=== PATIENT | female | born 1955 | race American Indian/Alaskan Native ===

== ENCOUNTER 2020-05-13 18:56 | Emergency (ER) | payer SELFPAY ==
[2020-05-13] MEDS ORDERED: SODIUM CHLORIDE 0.9% 1000 ML 1,000 ML IV ONE (20:04)
[2020-05-13] MEDS ORDERED: MORPHINE 4 MG/1 ML INJ IV ONE (20:04)
--- NOTE | 2020-05-13 20:25 | Emergency Department Report ---
HPI - HPI HPI: This is a 64-year-old -[place] female presents to the emergency department via EMS from home with a complaint of left lower quadrant abdominal pain that has been going on for the past few weeks but worsened today. She denies any fever, dysuria, vaginal bleeding or discharge, constipation or charlene rrhea, nausea or vomiting. The patient was seen at [facility] of [facility] last week for similar symptoms and says that she had a work-up but was eventually discharged home. She has a past medical history of previous CVA with right-sided deficits, COPD on 2 L oxygen, hypertension. The patient also has history of a left-sided nephrectomy secondary to renal carcinoma. She has not taken anything for her recent symptoms prior to presentation today. No recent travel or sick contacts at home. <ESTEFANY COURTNEY - Last Filed: 05/14/20 00:05> <BENJI CARRENO - Last Filed: 05/14/20 05:11> - General Chief Complaint: Abdominal Pain Time Seen by Provider: 05/13/20 20:04 ED Past Medical Hx - Past Medical History Previous Medical History?: Yes Hx Hypertension: Yes Hx CVA: Yes Hx COPD: Yes Additional medical history: lymphedema of bilateral lower legs - Surgical History Past Surgical History?: Yes Additional Surgical History: left kidney removed - Social History Smoking Status: Never Smoker Substance Use Type: None <ESTEFANY COURTNEY - Last Filed: 05/14/20 00:05> <BENJI CARRENO - Last Filed: 05/14/20 05:11> - Medications Home Medications: Home Medications Medication Instructions Recorded Confirmed Last Taken Type Albuterol INH(or & Nicu Only) 2 puff IH QID PRN 05/13/20 05/13/20 Unknown History [ProAir HFA Inhaler] Metoprolol [Lopressor] 12.5 mg PO BID 05/13/20 05/13/20 Unknown History predniSONE [Deltasone] 40 mg PO QDAY 05/13/20 05/13/20 Unknown History Rivaroxaban [Xarelto] 20 mg PO QDAY 05/14/20 05/14/20 Unknown History ED Review of Systems ROS: Stated complaint: COVID Other details as noted in HPI Comment: All other systems reviewed and negative Constitutional: denies: fever Eyes: denies: eye pain, vision change ENT: denies: ear pain, throat pain Respiratory: denies: cough, shortness of breath Cardiovascular: denies: chest pain, palpitations Gastrointestinal: abdominal pain. denies: vomiting Genitourinary: denies: dysuria, discharge Musculoskeletal: denies: back pain, arthralgia Skin: denies: rash, lesions Neurological: denies: headache, weakness <ESTEFANY COURTNEY Luis Felipe - Last Filed: 05/14/20 00:05> ROS: Stated complaint: COVID Other details as noted in HPI <EDILMAANGIEBENJI - Last Filed: 05/14/20 05:11> Physical Exam - Physical Exam Vital Signs: Vital Signs 05/13/20 05/13/20 19:41 19:48 Temperature 99.6 F 99.6 F Pulse Rate 94 H 96 H Respiratory 20 20 Rate Blood Pressure 120/75 Blood Pressure 125/76 [Left] O2 Sat by Pulse 98 98 Oximetry Physical Exam: GENERAL: The patient is well-developed well-nourished. HENT: Normocephalic. Atraumatic. Patient has moist mucous membranes. EYES: Extraocular motions are intact. NECK: Supple. Trachea is midline. CHEST/LUNGS: Clear to auscultation. There is no respiratory distress noted. HEART/CARDIOVASCULAR: Regular. There is no tachycardia. ABDOMEN: Abdomen is soft. Unable to reproduce left lower quadrant abdominal tenderness to palpation. No guarding. Patient has normal bowel sounds. There is no abdominal distention. SKIN: Skin is warm and dry. NEURO: The patient is awake, alert, and oriented. The patient is cooperative. Normal speech. MUSCULOSKELETAL: There is no tenderness or deformity. <ESTEFANY COURTNEY Luis Felipe - Last Filed: 05/14/20 00:05> - Physical Exam Vital Signs: Vital Signs 05/13/20 05/13/20 05/13/20 19:19 19:30 19:41 Temperature 99.6 F Pulse Rate 94 H Respiratory 20 Rate Blood Pressure 120/75 Blood Pressure 125/76 [Left] O2 Sat by Pulse 99 99 98 Oximetry 05/13/20 05/13/20 05/13/20 19:46 19:48 20:00 Temperature 99.6 F Pulse Rate 101 H 96 H 101 H Respiratory 21 20 26 H Rate Blood Pressure 120/75 120/75 125/76 Blood Pressure [Left] O2 Sat by Pulse 98 98 99 Oximetry 0605/13/20 05/13/20 20:16 20:30 20:45 Temperature Pulse Rate 99 H 100 H 100 H Respiratory 21 20 20 Rate Blood Pressure 130/79 143/92 143/75 Blood Pressure [Left] O2 Sat by Pulse 98 98 99 Oximetry 05/13/20 05/13/20 05/13/20 21:00 21:15 21:30 Temperature Pulse Rate 103 H 99 H 106 H Respiratory 24 28 H 23 Rate Blood Pressure 149/83 142/79 142/79 Blood Pressure [Left] O2 Sat by Pulse 98 99 98 Oximetry 05/13/20 05/13/20 05/13/20 21:35 21:46 22:00 Temperature 100.2 F H Pulse Rate 101 H 97 H 97 H Respiratory 20 24 24 Rate Blood Pressure 134/80 127/79 Blood Pressure 134/76 [Left] O2 Sat by Pulse 99 99 99 Oximetry 05/13/20 05/13/20 05/13/20 22:05 22:15 22:30 Temperature Pulse Rate 99 H 103 H Respiratory 20 24 16 Rate Blood Pressure 121/77 123/69 Blood Pressure [Left] O2 Sat by Pulse 99 99 Oximetry 05/13/20 05/13/20 05/13/20 22:46 23:00 23:15 Temperature Pulse Rate 103 H 101 H 104 H Respiratory 19 26 H 21 Rate Blood Pressure 139/84 142/76 142/87 Blood Pressure [Left] O2 Sat by Pulse 95 98 97 Oximetry 05/13/20 05/13/20 05/14/20 23:30 23:45 00:00 Temperature Pulse Rate 101 H 102 H 99 H Respiratory 20 41 H 19 Rate Blood Pressure 135/82 138/83 146/81 Blood Pressure [Left] O2 Sat by Pulse 94 92 95 Oximetry 05/14/20 05/14/20 05/14/20 00:16 00:30 00:46 Temperature Pulse Rate 99 H 104 H 100 H Respiratory 20 23 19 Rate Blood Pressure 139/77 144/87 122/80 Blood Pressure [Left] O2 Sat by Pulse 91 93 95 Oximetry <BENJI CARRENO - Last Filed: 05/14/20 05:11> ED Course Vital Signs 05/13/20 05/13/20 19:41 19:48 Temperature 99.6 F 99.6 F Pulse Rate 94 H 96 H Respiratory 20 20 Rate Blood Pressure 120/75 Blood Pressure 125/76 [Left] O2 Sat by Pulse 98 98 Oximetry <ESTEFANY COURTNEY S - Last Filed: 05/14/20 00:05> Vital Signs 05/13/20 05/13/20 05/13/20 19:19 19:30 19:41 Temperature 99.6 F Pulse Rate 94 H Respiratory 20 Rate Blood Pressure 120/75 Blood Pressure 125/76 [Left] O2 Sat by Pulse 99 99 98 Oximetry 05/13/20 05/13/20 05/13/20 19:46 19:48 20:00 Temperature 99.6 F Pulse Rate 101 H 96 H 101 H Respiratory 21 20 26 H Rate Blood Pressure 120/75 120/75 125/76 Blood Pressure [Left] O2 Sat by Pulse 98 98 99 Oximetry 05/13/20 05/13/20 05/13/20 20:16 20:30 20:45 Temperature Pulse Rate 99 H 100 H 100 H Respiratory 21 20 20 Rate Blood Pressure 130/79 143/92 143/75 Blood Pressure [Left] O2 Sat by Pulse 98 98 99 Oximetry 05/13/20 05/13/20 05/13/20 21:00 21:15 21:30 Temperature Pulse Rate 103 H 99 H 106 H Respiratory 24 28 H 23 Rate Blood Pressure 149/83 142/79 142/79 Blood Pressure [Left] O2 Sat by Pulse 98 99 98 Oximetry 05/13/20 05/13/20 05/13/20 21:35 21:46 22:00 Temperature 100.2 F H Pulse Rate 101 H 97 H 97 H Respiratory 20 24 24 Rate Blood Pressure 134/80 127/79 Blood Pressure 134/76 [Left] O2 Sat by Pulse 99 99 99 Oximetry 05/13/20 05/13/20 05/13/20 22:05 22:15 22:30 Temperature Pulse Rate 99 H 103 H Respiratory 20 24 16 Rate Blood Pressure 121/77 123/69 Blood Pressure [Left] O2 Sat by Pulse 99 99 Oximetry 05/13/20 05/13/20 05/13/20 22:46 23:00 23:15 Temperature Pulse Rate 103 H 101 H 104 H Respiratory 19 26 H 21 Rate Blood Pressure 139/84 142/76 142/87 Blood Pressure [Left] O2 Sat by Pulse 95 98 97 Oximetry 05/13/20 05/13/20 05/14/20 23:30 23:45 00:00 Temperature Pulse Rate 101 H 102 H 99 H Respiratory 20 41 H 19 Rate Blood Pressure 135/82 138/83 146/81 Blood Pressure [Left] O2 Sat by Pulse 94 92 95 Oximetry 05/14/20 05/14/20 05/14/20 00:16 00:30 00:46 Temperature Pulse Rate 99 H 104 H 100 H Respiratory 20 23 19 Rate Blood Pressure 139/77 144/87 122/80 Blood Pressure [Left] O2 Sat by Pulse 91 93 95 Oximetry - Reevaluation(s) Reevaluation #1: 05/14/20 01:49 CT scan reviewed and appreciated. Nursing team is instructed to prepare patient for gynecologic examination and straight catheterized patient for urine Reevaluation #2: 05/14/20 05:10 Urinalysis not consistent with urinary tract infection. CT scan of the abdomen pelvis is reviewed and appreciated. I performed a gynecologic examination, with Ms. Bing Ortiz RN assisting care for the patient, her external gynecologic exam was unremarkable, there were no foreign bodies, there was no tenderness, and no obvious abnormality that we could detect. <BENJI CARRENO - Last Filed: 05/14/20 05:11> ED Medical Decision Making - Lab Data Result diagrams: 05/13/20 20:54 05/13/20 20:54 - Medical Decision Making This patient presents with the complaint of left lower quadrant abdominal pain that appears to have been going on for the past few weeks but worsened over the past 1 to 2 days. On examination I am unable to reproduce her left lower quadrant abdominal pain to palpation. The abdomen is soft, nondistended and nontoxic in appearance. The patient's labs have thus far been unremarkable including CBC and metabolic panel. We are waiting for a urine sample for urinalysis. Abdominal x-ray shows no obvious obstruction but x-ray was read by radiology as showing some mild small bowel distention. The patient is going to have a CT scan of the abdomen and pelvis with IV contrast. The results of which will be followed by my colleague, Dr Carreno. If negative, the patient will be discharged home. <ESTEFANY COURTNEY - Last Filed: 05/14/20 00:05> - Lab Data Result diagrams: 05/13/20 20:54 05/13/20 20:54 Vital Signs 05/13/20 05/13/20 05/13/20 19:19 19:30 19:41 Temperature 99.6 F Pulse Rate 94 H Respiratory 20 Rate Blood Pressure 120/75 Blood Pressure 125/76 [Left] O2 Sat by Pulse 99 99 98 Oximetry 05/13/20 05/13/20 05/13/20 19:46 19:48 20:00 Temperature 99.6 F Pulse Rate 101 H 96 H 101 H Respiratory 21 20 26 H Rate Blood Pressure 120/75 120/75 125/76 Blood Pressure [Left] O2 Sat by Pulse 98 98 99 Oximetry 05/13/20 05/13/20 05/13/20 20:16 20:30 20:45 Temperature Pulse Rate 99 H 100 H 100 H Respiratory 21 20 20 Rate Blood Pressure 130/79 143/92 143/75 Blood Pressure [Left] O2 Sat by Pulse 98 98 99 Oximetry 05/13/20 05/13/20 05/13/20 21:00 21:15 21:30 Temperature Pulse Rate 103 H 99 H 106 H Respiratory 24 28 H 23 Rate Blood Pressure 149/83 142/79 142/79 Blood Pressure [Left] O2 Sat by Pulse 98 99 98 Oximetry 05/13/20 05/13/20 05/13/20 21:35 21:46 22:00 Temperature 100.2 F H Pulse Rate 101 H 97 H 97 H Respiratory 20 24 24 Rate Blood Pressure 134/80 127/79 Blood Pressure 134/76 [Left] O2 Sat by Pulse 99 99 99 Oximetry 05/13/20 05/13/20 05/13/20 22:05 22:15 22:30 Temperature Pulse Rate 99 H 103 H Respiratory 20 24 16 Rate Blood Pressure 121/77 123/69 Blood Pressure [Left] O2 Sat by Pulse 99 99 Oximetry 05/13/20 05/13/20 05/13/20 22:46 23:00 23:15 Temperature Pulse Rate 103 H 101 H 104 H Respiratory 19 26 H 21 Rate Blood Pressure 139/84 142/76 142/87 Blood Pressure [Left] O2 Sat by Pulse 95 98 97 Oximetry 05/13/20 05/13/20 05/14/20 23:30 23:45 00:00 Temperature Pulse Rate 101 H 102 H 99 H Respiratory 20 41 H 19 Rate Blood Pressure 135/82 138/83 146/81 Blood Pressure [Left] O2 Sat by Pulse 94 92 95 Oximetry 06/05/14/20 05/14/20 00:16 00:30 00:46 Temperature Pulse Rate 99 H 104 H 100 H Respiratory 20 23 19 Rate Blood Pressure 139/77 144/87 122/80 Blood Pressure [Left] O2 Sat by Pulse 91 93 95 Oximetry Lab Results 05/13/20 05/13/20 Range/Units 20:54 20:54 WBC 4.1 L (4.5-11.0) K/mm3 RBC 4.95 (3.65-5.03) M/mm3 Hgb 14.4 H (10.1-14.3) gm/dl Hct 44.7 H (30.3-42.9) % MCV 90 (79-97) fl MCH 29 (28-32) pg MCHC 32 (30-34) % RDW 14.5 (13.2-15.2) % Plt Count 203 (140-440) K/mm3 Lymph % (Auto) 31.2 (13.4-35.0) % [place] % (Auto) 10.0 H (0.0-7.3) % Eos % (Auto) 0.0 (0.0-4.3) % Baso % (Auto) 0.3 (0.0-1.8) % Lymph # 1.3 (1.2-5.4) K/mm3 [place] # 0.4 (0.0-0.8) K/mm3 Eos # 0.0 (0.0-0.4) K/mm3 Baso # 0.0 (0.0-0.1) K/mm3 Seg Neutrophils % 58.5 (40.0-70.0) % Seg Neutrophils # 2.4 (1.8-7.7) K/mm3 Sodium 138 (137-145) mmol/L Potassium 3.6 (3.6-5.0) mmol/L Chloride 98.6 (98-107) mmol/L Carbon Dioxide 26 (22-30) mmol/L Anion Gap 17 mmol/L BUN 23 H (7-17) mg/dL Creatinine 1.0 (0.7-1.2) mg/dL Estimated GFR > 60 ml/min BUN/Creatinine Ratio 23 % Glucose 77 (65-100) mg/dL Calcium 8.6 (8.4-10.2) mg/dL Total Bilirubin 0.30 (0.1-1.2) mg/dL Direct Bilirubin 0.2 (0-0.2) mg/dL Indirect Bilirubin 0.1 mg/dL AST 22 (5-40) units/L ALT 12 (7-56) units/L Alkaline Phosphatase 86 (35-129) units/L Total Protein 6.9 (6.3-8.2) g/dL Albumin 3.9 (3.9-5) g/dL Albumin/Globulin Ratio 1.3 % Lipase 38 (13-60) units/L - EKG Data -: EKG Interpreted by Me - EKG Data 05/14/20 01:49 Sinus rhythm, 97 bpm, normal axis, QTC 442 ms, low voltage, poor R wave progression, abnormal EKG, - Radiology Data Radiology results: report reviewed, image reviewed Print Report Referring Physician: ESTEFANY COURTNEY Patient Name: ROSALBA VANN Date of : 1955 Sex: Female Report Date: 2020-05-14 Report Status: [place] [address] Cat Scan Report Signed Patient: ROSALBA VANN MR#: [id number] : 1955 Acct:[id number] Age/Sex: 64 / F ADM Date: 05/13/20 Loc: ED Attending Dr: Ordering Physician: ESTEFANY COURTNEY DO Date of Service: 05/13/20 Procedure(s): CT abdomen pelvis wo con Accession Number(s): [id number] cc: ESTEFANY COURTNEY DO CT ABDOMEN AND PELVIS WITHOUT IV CONTRAST INDICATION: Pt complains of L.L.Q. abdominal pain. Hx of a Nephrectomy. COMPARISON: Radiographs one day prior. TE CHNIQUE: All CT scans at this facility use dose modulation, automated exposure control, iterative reconstruction or weight based dosing, when appropriate, to reduce radiation dose to as low as reasonably achievable. FINDINGS: Lung Bases: No significant abnormality. Skeletal System: No acute abnormality. There is mild chronic compression deformity along the superior endplate of L5. ABDOMEN: Liver: No significant abnormality. Gallbladder: Minimal cholelithiasis. Bile Ducts: No significant abnormality. Pancreas: No significant abnormality. Spleen: No significant abnormality. Adrenals: No significant abnormality. Right Kidney: There is a punctate nonobstructing calyceal stone. No hydronephrosis. Left Kidney: Removed. Upper GI tract: No significant abnormality. Lymph Nodes: No significant adenopathy. Aorta: No significant abnormality. Additional Findings: There is a tiny fat-containing umbilical hernia. PELVIS: Colon: No acute abnormality. Urinary Bladder and Distal Ureters: No significant abnormality. Appendix: No significant abnormality. Lymph Nodes: No significant adenopathy. Additional Findings: The vaginal vault is markedly distended with gas. IMPRESSION: 1. No acute inflammatory process or bowel obstruction is seen. 2. The vaginal vault is markedly distended with gas. This is of uncertain etiology. 3. Incidental findings, as above. Signer Name: Good Centeno MD Signed: 05/14/2020 1:37 AM Workstation Name: [id number] Transcribed By: LAURA Dictated By: Good Centeno MD Electronically Authenticated By: Good Centeno MD Signed Date/Time: 05/14/20136 DD/ 9 <BENJI CARRENO Last Filed: 05/14/20 05:11> Critical Care Time: No Critical care attestation.: If time is entered above; I have spent that time in minutes in the direct care of this critically ill patient, excluding procedure time. <ESTEFANY COURTNEY - Last Filed: 05/14/20 00:05> Critical care attestation.: If time is entered above; I have spent that time in minutes in the direct care of this critically ill patient, excluding procedure time. <BENJI CARRENO Last Filed: 05/14/20 05:11> ED Disposition Is pt being admited?: No <ESTEFANY COURTNEY - Last Filed: 05/14/20 00:05> Is pt being admited?: No Does the pt Need Aspirin: No <BENJI CARRENO Last Filed: 05/14/20 05:11> Clinical Impression: Abdominal pain Disposition: DC-01 TO HOME OR SELFCARE Condition: Stable Instructions: Abdominal Pain (ED), COVID-19 Additional Instructions: Continue current outpatient medications. Follow-up with a primary care doctor within the next 3 to 5 days. Take [id number] Tylenol as needed for pain. Return to the emergency room right away with new, worsened or different symptoms, or symptoms not present on the initial emergency room evaluation. As we discussed, the patient most likely has novel coronavirus/COVID. the symptoms of COVID will typically persist 10 to 14 days. There is no cure at this time for COVID. Please make certain to self isolate and self quarantine, follow-up with an outpatient primary care doctor within the next 3 to 5 days, wash hands with soap and water frequently, thoroughly and often, patient may take the prescribed medications as needed and directed. Advance diet and drink plenty of fluids as tolerated. Avoid interactions with the very elderly, very young, and those with chronic medical conditions. Return to the emergency room right away with new pain, worsening pain, migration of pain, projectile vomiting, change in mental status, confusion, inability to tolerate liquid feeds, new, worsened or different symptoms not present on the initial emergency room evaluation. Referrals: GRETA OKEEFE MD [Staff Physician] - 3-5 Days
--- NOTE | 2020-05-13 20:58 | XRay Report ---
ABDOMEN FLAT AND UPRIGHT PORTABLE 2028 INDICATION: Unknown COMPARISON: None available. FINDINGS: Images are blurred by motion. Upright view excludes the pelvis. Mild gaseous distention of the colon is seen without true dilatation. No definite air-fluid levels ar e noted. I do not see convincing evidence of bowel obstruction. Mild small bowel distention is noted. No obvious pneumoperitoneum is seen. Visualized portions of the lung chavez show a large rounded madelyn cified lesion projecting in the right mid chest, possibly a large calcified granuloma or even a breas t calcification. Signer Name: Toro Wilcox MD Signed: 05/13/2020 8:53 PM Workstation Name: [id number]
[2020-05-13 21:10] LABS: Basophils % (Auto) 0.3 % (0.0-1.8); Hematocrit 44.7 % (30.3-42.9); Hemoglobin 14.4 gm/dl (10.1-14.3); Lymphocytes # (Auto) 1.3 K/mm3 (1.2-5.4); Lymphocytes % (Auto) 31.2 % (13.4-35.0); Mean Corpuscular HGB Conc 32 % (30-34); Mean Corpuscular Volume 90 fl (79-97); Monocytes # (Auto) 0.4 K/mm3 (0.0-0.8); Platelet Count 203 K/mm3 (140-440); Red Blood Count 4.95 M/mm3 (3.65-5.03); Red Cell Distribution Width 14.5 % (13.2-15.2)
[2020-05-13] MEDS ORDERED: ACETAMINOPHEN 325 MG TAB PO ONE (21:38)
[2020-05-13 21:47] LABS: BUN/Creatinine Ratio 23; Blood Urea Nitrogen 23 mg/dL (7-17); Calcium 8.6 mg/dL (8.4-10.2)
[2020-05-13 21:48] LABS: Alanine Aminotransferase 12 units/L (7-56); Albumin 3.9 g/dL (3.9-5); Bilirubin,Direct 0.2 mg/dL (0-0.2); Hemolysis Index 11
[2020-05-14] MEDS ORDERED: ACETAMINOPHEN 325 MG TAB ONE (00:25)
--- NOTE | 2020-05-14 01:41 | Cat Scan Report ---
CT ABDOMEN AND PELVIS WITHOUT IV CONTRAST INDICATION: Pt complains of L.L.Q. abdominal pain. Hx of a Nephrectomy. COMPARISON: Radiographs one day prior. TECHNIQUE: All CT scans at this facility use dose modulation, automated exposure control, iterative reconstructi on or weight based dosing, when appropriate, to reduce radiation dose to as low as reasonably achieva ble. FINDINGS: Lung Bases: No significant abnormality. Skeletal System: No acute abnormality. There is mild chronic compression deformity along the superio r endplate of L5. ABDOMEN: Liver: No significant abnormality. Gallbladder: Minimal cholelithiasis. Bile Ducts: No significant abnormality. Pancreas: No significant abnormality. Spleen: No significant abnormality. Adrenals: No significant abnormality. Right Kidney: There is a punctate nonobstructing calyceal stone. No hydronephrosis. Left Kidney: Removed. Upper GI tract: No significant abnormality. Lymph Nodes: No significant adenopathy. Aorta: No significant abnormality. Additional Findings: There is a tiny fat-containing umbilical hernia. PELVIS: Colon: No acute abnormality. Urinary Bladder and Distal Ureters: No significant abnormality. Appendix: No significant abnormality. Lymph Nodes: No significant adenopathy. Additional Findings: The vaginal vault is markedly distended with gas. IMPRESSION: 1. No acute inflammatory process or bowel obstruction is seen. 2. The vaginal vault is markedly distended with gas. This is of uncertain etiology. 3. Incidental findings, as above. Signer Name: Good Centeno MD Signed: 05/14/2020 1:37 AM Workstation Name: [id number]
[2020-05-14 04:56] LABS: Bilirubin,Urine NEG (Negative); Blood,Urine NEG (Negative); Color,Urine Yellow (Yellow); Mucus,Urine FEW /HPF; Urobilinogen,Urine < 2.0 mg/dL (<2.0)
[2020-05-14 19:06] VITALS: BP 123/56
== END 2020-05-14 18:50 | disposition home or self-care (01) ==
LOC: ED 18:56
DX: R10.32 Left lower quadrant pain (principal); I10 Essential (primary) hypertension; J44.9 Chronic obstructive pulmonary disease, unspecified; Z86.73 Personal history of transient ischemic attack (TIA), and cerebral infarction without residual deficits; Z88.6 Allergy status to analgesic agent
CPT/HCPCS: 36415; 74019; 74176; 80048; 80076; 81001; 83690; 85025; 93005; 96374; 99285; J2270; J7030